=== PATIENT | male | born 1995 | race Two or more races ===

== ENCOUNTER 2024-04-19 16:53 | Emergency (ER) | payer OTHER ==
[2024-04-19] MEDS: Ketorolac 10 MG Tab PO STA (17:28)
[2024-04-19] MEDS: Methocarbamol 750 MG Tab PO STA (17:29)
== END 2024-04-19 17:30 | disposition home or self-care (01) ==
LOC: MW.ED 16:53
DX: G89.29 Other chronic pain (principal); M54.50 Low back pain, unspecified; F17.210 Nicotine dependence, cigarettes, uncomplicated; Z75.8 Other problems related to medical facilities and other health care
CPT/HCPCS: 99283; A9270